=== PATIENT | female | born 1985 | race African-American/Black ===

== ENCOUNTER 2020-03-18 08:05 | Inpatient (IN) | payer OTHER ==
[2020-03-18] MEDS: OXYTOCIN 20 UNITS in 0.9% NS 20 UNIT/1,000 ML INFUS.BAG IV SCH (08:30)
[2020-03-18] MEDS ORDERED: CITRIC ACID/SODIUM CITRATE 30 ML UNIT-DOSE CUP PO ONE (08:30)
[2020-03-18] MEDS ORDERED: ELECTROLYTE-148 SOLN 500 ML IV ONE (08:30)
[2020-03-18 08:46] VITALS: BMI 25.7
[2020-03-18] MEDS ORDERED: ONDANSETRON 4 MG/2 ML VIAL IVPUSH PRN (09:08)
[2020-03-18] MEDS ORDERED: IBUPROFEN 600 MG TABLET (FP) PO PRN (09:08)
--- NOTE | 2020-03-18 09:24 | HP ---
Past Medical History - Admission History Source: Patient Limitations to Obtaining History: No Limitations - Past Medical History ...: 4 ...Para: 2 ...Term: 2 ...Spon : 1 ...Living Children: 2 ...LMP: 06/07/19 ... Weeks Gestation by Dates: 40.5 ...EDC by Dates: 03/13/20 ...EDC by Sono: 04/05/20 - Past Surgical History Past Surgical History: Yes: Hx Myomectomy: No Hx Transabdominal Cerclage: No - Smoking History Smoking history: Never smoked Have you smoked in the past 12 months: No - Alcohol/Substance Use Hx Alcohol Use: No - Social History History of Recent Travel: No Home Medications - Allergies Allergies/Adverse Reactions: Allergies Allergy/AdvReac Type Severity Reaction Status Date / Time No Known Allergies Allergy Verified 03/18/20 09:18 Family Medical History Family History: Denies Physical Exam - Maternity Vital Signs: Vital Signs Temperature 98.4 F 03/18/20 08:32 Pulse Rate 88 03/18/20 08:32 Respiratory Rate 18 03/18/20 08:32 Blood Pressure 124/82 03/18/20 08:32 O2 Sat by Pulse Oximetry (%) Constitutional: Yes: No Distress - Abdominal Exam/OB Number of Fetuses: Single Presentation: Vertex Monitor Mode: External Heart Rate (range): 140 Category: I - Vaginal Exam/OB Vaginal Bleeding: No Speculum Exam: No - Physical Exam Extremities: Yes: WNL Edema: No Hemorrhage Risk Assessment - Risk Factors Medium Risk Factors: Yes: Prior , uterine surgery,or multiple laparotomies Risk Score: 1 Risk Level: Medium Risk Problem List - Problems (1) Gestational hypertension Code(s): O13.9 - GESTATIONAL HTN W/O SIGNIFICANT PROTEINURIA, UNSP TRIMESTER Qualifiers: Trimester: third trimester Qualified Code(s): O13.3 - Gestational [-induced] hypertension without significant proteinuria, third trimester Assessment/Plan 34 year old at 37w5d with gestational hypertension Previous CS x 2 For repeat CS and bilateral tubal ligation
[2020-03-18] MEDS ORDERED: morphine SULFATE/PF 0.5 MG/ML (2cc Syringe - QUVA) ONE (09:46)
[2020-03-18] MEDS ORDERED: PHENYLEPHRINE HCL 10 MG/1 ML SINGLE DOSE VIAL ONE (09:46)
[2020-03-18] MEDS ORDERED: MIDAZOLAM HCL 2 MG/2 ML SINGLE DOSE VIAL ONE (10:52)
[2020-03-18] MEDS ORDERED: OXYTOCIN 10 UNITS/ML VIAL ONE ×4 (10:57)
[2020-03-18] MEDS ORDERED: ceFAZolin SODIUM 1 GM VIAL ONE ×2 (10:58)
[2020-03-18 11:30] LABS: CORD BASE EXCESS -1.2 mmol/L (0-2); CORD HCO3 24.4 mmHg (20-29); CORD pH 7.362 (7.14-7.44)
[2020-03-18 11:33] LABS: CORD BASE EXCESS -2.6 mmol/L (0-2); CORD HCO3 25.2 mmHg (20-29); CORD PCO2 55.3 mmHg (30-78); CORD pH 7.276 (7.14-7.44)
--- NOTE | 2020-03-18 11:35 | OP ---
Operative Note - Note: Operative Date: 03/18/20 Pre-Operative Diagnosis: 37w5d previous CS x 2, gestational hypertension Operation: Repeat delivery and bilateral partial salpingectomy Findings: Fibroid uterus Clear amniotic fluid Male Scant amount of adhesions to omentum Post-Operative Diagnosis: Same as Pre-op Surgeon: Radha Ventura Customer Acquisition Specialist: Sushil Rm Anesthesiologist/SHEET HEATER HELPER: Ephraim Nsah Anesthesia: Spinal Specimens Removed: portion of fallopian tubes Estimated Blood Loss (mls): 750 Fluid Volume Replaced (mls): 2,000
[2020-03-18] MEDS ORDERED: OXYTOCIN 20 UNITS in 0.9% NS 20 UNIT/1,000 ML INFUS.BAG IV ONE (12:47)
[2020-03-18] MEDS: KETOROLAC TROMETHAMINE 30 MG/1 ML VIAL IVPUSH SCH ×2 (13:44→18:19)
[2020-03-19] MEDS: KETOROLAC TROMETHAMINE 30 MG/1 ML VIAL IVPUSH SCH ×3 (02:06→18:27)
[2020-03-19] MEDS: OXYTOCIN 20 UNITS in 0.9% NS 20 UNIT/1,000 ML INFUS.BAG IV SCH (04:07)
--- NOTE | 2020-03-19 09:08 | PN ---
Progress Note, Physician Chief Complaint: s/p c section under spinal anesthesia post op day one. History of Present Illness: duramorph for post op analgesia - Current Medication List Current Medications: Active Medications Acetaminophen (Tylenol -) 650 mg PO Q4H PRN PRN Reason: PAIN LEVEL 1-5 Diphenhydramine HCl (Benadryl Injection -) 25 mg IVPUSH Q4H PRN PRN Reason: Pruritis Oxytocin/Sodium Chloride (Normal Saline+20 Units Oxytocin -) 20 unit in 1,000 mls @ 125 mls/hr IV ASDIR [facility] Last Admin: 03/19/20 04:07 Dose: 125 mls/hr Documented by: Ibuprofen (Motrin -) 600 mg PO Q4H PRN PRN Reason: PAIN LEVEL 1-5 Ketorolac Tromethamine (Toradol Injection -) 30 mg IVPUSH Q8H-IV KANCHAN Stop: 03/23/20 13:29 Last Admin: 03/19/20 02:06 Dose: 30 mg Documented by: Ondansetron HCl (Zofran Injection) 4 mg IVPUSH Q4H PRN PRN Reason: NAUSEA - Objective Vital Signs: Vital Signs Temperature 98.7 F 03/19/20 06:00 Pulse Rate 65 03/19/20 06:00 Respiratory Rate 18 03/19/20 06:00 Blood Pressure 137/87 03/19/20 06:00 O2 Sat by Pulse Oximetry (%) 100 03/18/20 22:00 Constitutional: Yes: Well Nourished Cardiovascular: Yes: WNL Respiratory: Yes: WNL Gastrointestinal: Yes: WNL Assessment/Plan Noadverse effects of anesthetic, pain controlled, no nausea or vomiting, dept of anesthesia will sign off care at this time
[2020-03-19] MEDS ORDERED: IBUPROFEN 600 MG TABLET (FP) PO PRN (09:23)
[2020-03-19] MEDS ORDERED: SENNOSIDES/DOCUSATE COMBO (SENNA PLUS) TABLET (UD) PO PRN (09:23)
[2020-03-19] MEDS ORDERED: METHYLERGONOVINE MALEATE 0.2 MG/1 ML AMP IM PRN (09:23)
[2020-03-19] MEDS ORDERED: oxyCODONE HCL 5 MG TABLET PO PRN (09:23)
--- NOTE | 2020-03-19 10:01 | PN ---
Post Progress Note Post Day: 1 Type of Delivery: Repeat C/S Vital Signs: Vital Signs Temperature 98.8 F 03/19/20 09:00 Pulse Rate 83 03/19/20 09:00 Respiratory Rate 18 03/19/20 09:00 Blood Pressure 139/91 03/19/20 09:00 O2 Sat by Pulse Oximetry (%) 100 03/18/20 22:00 Breast Exam: Yes: Soft Uterus: Yes: Fundus Firm Incision: Yes: Dressing dry and intact Abdomen/GI: Yes: Abdomen soft, Tolerating PO Lochia: Yes: Rubra Lochia, amount: Small Extremities: Yes: Calves non-tender Activity: Ambulating Assessment/Plan POD #1, hemodynamically stable Delivered at 37+ weeks due to GHTN Monitor vitals Watch for signs/symptoms preeclampsia Ambulation encouraged Advance diet as tolerated Pain management Consider discharge home in 1-2 days
[2020-03-19] MEDS: PRENATAL VITAMINS W/ FOLIC ACID TABLET (FP) PO SCH (11:26)
[2020-03-19 12:17] LABS: BASO % 0.7 % (0-2.0); EOS % 1.6 % (0-4.5); HEMATOCRIT 29.8 % (32.4-45.2); HEMOGLOBIN 9.7 GM/dL (10.7-15.3); LYMPH % 14.5 % (8-40); MCH 27.7 pg (25.7-33.7); MCHC 32.6 g/dl (32.0-36.0); MEAN PLT VOLUME 9.2 fl (7.5-11.1); MONO % 7.4 % (3.8-10.2); NEUT % 75.8 % (42.8-82.8); PLATELET COUNT 227 K/MM3 (134-434); RBC 3.51 M/mm3 (3.60-5.2); WHITE BLOOD COUNT 7.5 K/mm3 (4.0-10.0)
[2020-03-19] MEDS: SIMETHICONE 80 MG TAB.CHEW (FP) PO PRN ×2 (15:15→21:19)
[2020-03-19] MEDS: ACETAMINOPHEN 325 MG TABLET (FP) PO PRN ×2 (15:15→21:19)
[2020-03-20] MEDS: KETOROLAC TROMETHAMINE 30 MG/1 ML VIAL IVPUSH SCH ×2 (01:59→09:35)
[2020-03-20] MEDS ORDERED: BISACODYL 10 MG SUPP.RECT RC PRN (09:23)
[2020-03-20] MEDS: PRENATAL VITAMINS W/ FOLIC ACID TABLET (FP) PO SCH (09:35)
--- NOTE | 2020-03-20 10:03 | DS ---
Physical Exam-FOOD SERVICE COORDINATOR Vital Signs: Vital Signs Temperature 98.9 F 03/19/20 22:00 Pulse Rate 80 03/19/20 22:00 Respiratory Rate 18 03/19/20 22:00 Blood Pressure 131/79 03/19/20 22:00 O2 Sat by Pulse Oximetry (%) 100 03/19/20 22:00 Constitutional: Yes: Well Nourished, No Distress, Calm Eyes: Yes: WNL, Conjunctiva Clear, EOM Intact HENT: Yes: WNL, Atraumatic, Normocephalic Neck: Yes: WNL, Supple, Trachea Midline Cardiovascular: Yes: WNL, Regular Rate and Rhythm Respiratory: Yes: WNL, Regular, CTA Bilaterally Gastrointestinal: Yes: WNL ...Rectal Exam: Yes: WNL Renal/: Yes: WNL ....Post : Yes: Uterus firm, Uterus non-tender, Slight lochia rubra Breast(s): Yes: WNL Musculoskeletal: Yes: WNL Extremities: Yes: WNL Integumentary: Yes: WNL Wound/Incision: Yes: Clean/Dry, Well Approximated, Steri Strips Neurological: Yes: WNL, Alert, Oriented ...Motor Strength: WNL Psychiatric: Yes: WNL, Alert, Oriented Labs: CBC, BMP 03/19/20 11:53 Delivery - Delivery Type of Anesthesia: Spinal EBL (cc): 600 Delivery, Single - Stages of Labor Date of Delivery: 03/18/20 Time of Delivery: 10:32 Time Placenta Delivered: 10:33 - Condition of Infant Supervisor Intermediates/Stroke Belt Sander Operator Present: Yes Name: Puneet Raya Gender: Male Weight: 3.77 kg Position: OA Total Hours ROM (Hrs/Mins): 1M - 1 Minute Total Score: 9 5 Minutes Total Score: 9 - [place] Feeding Plan Initial Plan: Elected not to breastfeed exclusively throughout hospitalization Discharge Summary Problems reviewed: Yes Reason For Visit: Current Active Problems Gestational hypertension (Acute) Condition: Good - Instructions Disposition: HOME - Home Medications Comprehensive Discharge Medication List: Ambulatory Orders Tablet 1 tablet PO DAILY 03/18/20
[2020-03-20 10:14] VITALS: BP 127/75; PULSE 76; TEMP 98.2
--- NOTE | 2020-03-24 15:02 | OP ---
DATE OF OPERATION: 03/18/2020 PROCEDURE PERFORMED: Repeat section. PATIENT DIAGNOSES: A 37-weeks of gestation with gestational hypertension and previous section. ANESTHESIA: Spinal. SURGEON: Radha Ventura MD INTERNET SITE DESIGNER: DESIRAE Rm . ESTIMATED BLOOD LOSS: 750 mL. PROCEDURE: An informed consent was taken from the patient. The patient was then taken to the operating room where spinal anesthesia was initiated by the anesthesiologist. The patient was then placed in the dorsal supine position with a leftward tilt. The patient was then prepped and draped in normal sterile fashion. A Pfannenstiel skin incision was performed over the old scar with a scalpel. The incision was then carried down with the Bovie to the fascia. The fascia was then incised in the midline with the Bovie and extended bilaterally. Two straight Miguel clamps were used to grasp the lower portion of the fascia. The underlying rectus muscle was dissected off bluntly and sharply. The same procedure was performed in the upper portion of the fascia. The rectus muscle was then in the midline. Entry to the peritoneal cavity was performed. Very scant amount of adhesions were noted from the uterus to the anterior abdominal wall. The bladder blade was then inserted and bladder flap was created with Metzenbaum scissors. The bladder blade was then repositioned. A lower uterine segment incision was performed in the uterus and extended bluntly. Amniotomy was performed, clear fluid was noted, and the was delivered atraumatically. The infant was then given to the waiting biochemistry technologist. A segment of the cord was taken for cord gases and a sample of cord blood was taken. The placenta was then removed manually. Due to a large fibroid anteriorly the uterus was not able to be exteriorized. The inside of the uterus were cleared of all cuts and membranes with dry laparotomy sponges. T- clamps and Allis clamps were placed in the uterine incision to obtain hemostasis. The uterus was then repaired in one layer with 0 Vicryl suture in a running locked fashion. Good hemostasis was obtained. Attention was then placed to the fallopian tubes. The right fallopian tube was identified down to the fimbria. With the use of the LigaSure, a partial salpingectomy was performed. Good hemostasis was achieved. The same procedure was performed of the left fallopian tube. After identifying the fimbria, a partial salpingectomy was performed with the LigaSure. Attention was then placed again to the uterine incision. Hemostasis confirmed. The fascia was then identified and the fascia was repaired in a running fashion with 0 Vicryl suture. Irrigation was performed and the skin was then closed with 3-0 Vicryl suture in subcuticular fashion. The patient tolerated well the procedure. The count was correct x2 and the patient was then transferred to recovery room in stable condition. MD NATHAN DORSEY/[id number] MTDD
--- NOTE | 2020-03-24 17:38 | PATH ---
Surgical Pathology Report Patient Name: MIRNA AMBROSIO [facility]. Rec. #: [id number] /Age/Gender: 1985 (Age: 34) / F Account: [id number] Location: [facility] OBS/GOLD LAYER Taken: 03/18/2020 Received: 03/18/2020 Reported: 03/24/2020 Physicians: Radha Ventura M.D. Specimen(s) Received A: PLACENTA B: RIGHT FALLOPIAN TUBE C: LEFT FALLOPIAN TUBE Clinical History , TERM 2, SAB x1, C Section 2006 and 2017, history of HSV 2 Final Diagnosis A. PLACENTA, SECTION: 536 G THIRD TRIMESTER PLACENTA WITH TRIVASCULAR UMBILICAL CORD AND UNREMARKABLE PLACENTAL MEMBRANES. B. FALLOPIAN TUBE, RIGHT, SALPINGECTOMY: UNREMARKABLE FALLOPIAN TUBE (INCLUDING FIMBRIATED END AND FULL LUMINAL PORTION). C. FALLOPIAN TUBE, LEFT, SALPINGECTOMY: UNREMARKABLE FALLOPIAN TUBE (INCLUDING FIMBRIATED END AND FULL LUMINAL PORTION). Electronically Signed Sandra Mar M.D. Gross Description A. The specimen is received fresh labeled placenta and is a 536 gram, 19.5 x 15.5 x 3.2 cm. placenta with attached membranes and umbilical cord. The attached membranes are concepcion, translucent with focal opacities and insert marginally. The umbilical cord measures 19 cm. in length and averages 1 cm. in diameter. The cord inserts eccentrically, 4.5 cm. to the nearest margin. No true knots or strictures are identified. Cut surface of the umbilical cord reveals 3 vessels. The surface is munson-blue with minimal fibrin deposition and appropriate caliber vessels. The maternal surface is red-brown with focal defects. Sectioning reveals red-brown, spongy parenchyma. No lesions are identified. Aircraft Structural Fitter sections are submitted in three cassettes as follows: 1- membrane rolls and umbilical cord; 2-3- full thickness sections of placenta. B. Received in formalin labeled "right fallopian tube," is a 2.2 cm in length fimbriated fallopian tube. The outer surface is concepcion-brown and smooth. Sectioning reveals an unremarkable lumen. Aircraft Structural Fitter sections are submitted in 2 cassettes as follows: 1-fimbria; 2-cross sections of fallopian tube. C. Received in formalin labeled "left fallopian tube," is a 3 cm in length fimbriated fallopian tube. The outer surface is concepcion-brown and smooth. Sectioning reveals an unremarkable lumen. Aircraft Structural Fitter sections are submitted in 2 cassettes as follows: 1-fimbria; 2-cross sections of fallopian tube. 03/23/2020 [facility]03/23/2020
== END 2020-03-20 20:10 | disposition home or self-care (01) | DRG 540 ==
LOC: JLDR 08:05 → J3W 13:05
PROVIDERS: ADMIT Obstetrics & Gynecology; ATTEND Obstetrics & Gynecology
PROC: 10D00Z1 Extraction of Products of Conception, Low, Open Approach (ICD-10-PCS; principal; 2020-03-18)
PROC: 0UB77ZZ Excision of Bilateral Fallopian Tubes, Via Natural or Artificial Opening (ICD-10-PCS; 2020-03-18)
DX: O82 Encounter for cesarean delivery without indication (principal); O13.3 Gestational [pregnancy-induced] hypertension without significant proteinuria, third trimester; O98.32 Other infections with a predominantly sexual mode of transmission complicating childbirth; O26.43 Herpes gestationis, third trimester; A60.09 Herpesviral infection of other urogenital tract; Z37.0 Single live birth; O34.219 Maternal care for unspecified type scar from previous cesarean delivery; O69.81X0 Labor and delivery complicated by cord around neck, without compression, not applicable or unspecified; O34.13 Maternal care for benign tumor of corpus uteri, third trimester; D25.9 Leiomyoma of uterus, unspecified; Z3A.37 37 weeks gestation of pregnancy; Z30.2 Encounter for sterilization
CPT/HCPCS: 36415; 36600; 82803; 85025; 86850; 86900; 86901; 88302-TC; 88307-TC